=== PATIENT | male | born 1955 | race American Indian/Alaskan Native ===

== ENCOUNTER 2021-04-05 17:14 | Observation (INO) | payer OTHER ==
--- NOTE | 2021-04-05 18:02 | XRay Report ---
CHEST 2 VIEWS INDICATION / CLINICAL INFORMATION: cp. COMPARISON: None available. FINDINGS: SUPPORT DEVICES: None. HEART / MEDIASTINUM: No significant abnormality. LUNGS / PLEURA: Approximately 7-8 cm focal opacity in the medial segment of the middle lobe. Remainde r of the lungs are overall clear. No pneumothorax. ADDITIONAL FINDINGS: No significant additional findings. IMPRESSION: 1. Approximately 7-8 cm focal opacity in the medial segment of the middle lobe. While this could repr esent middle lobe consolidation, mass lesion, such as neoplasm, is not excluded. Consider further luis luation with dedicated CT chest. Signer Name: Krishna Espinal MD Signed: 04/05/2021 5:57 PM Workstation Name: [id number]
--- NOTE | 2021-04-05 18:48 | Event Note ---
ED Screening Note Date of service: 04/05/21 Time: 18:47 ED Screening Note: 65-year-old -Swiss male presents to the emergency chest pain times a couple days shortness of breath x1 month. Patient complains of fatigue cough chills. Past medical history of hypertension and hyperlipidemia. Currently on lisinopril and hydrochlorothiazide 10 mg over 12.5 and Lipitor 30 mg nightly. Patient reports he has had his Covid vaccination. Has a history of a 20-year smoking of cigarettes. Denies any EtOH denies any VICKI. This initial assessment/diagnostic orders/clinical plan/treatment(s) is/are subject to change based on patients health status, clinical progression and re- assessment by fellow clinical providers in the ED. Further treatment and workup at subsequent clinical providers discretion. Patient/guardian urged not to elope from the ED as their condition may be serious if not clinically assessed and managed. Initial orders include:
[2021-04-05 19:16] LABS: Hematocrit 28.1 % (35.5-45.6); Hemoglobin 9.4 gm/dl (11.8-15.2); Mean Corpuscular HGB Conc 33 % (32-34); Mean Corpuscular Volume 86 fl (84-94); Platelet Count 358 K/mm3 (140-440); Red Blood Count 3.28 M/mm3 (3.65-5.03); Red Cell Distribution Width 14.2 % (13.2-15.2)
[2021-04-05 19:26] LABS: Alanine Aminotransferase 30 units/L (7-56); BUN/Creatinine Ratio 13; Blood Urea Nitrogen 9 mg/dL (9-20); Calcium 8.5 mg/dL (8.4-10.2); Hemolysis Index 15
--- NOTE | 2021-04-05 22:58 | Cat Scan Report ---
CT CHEST WITH CONTRAST INDICATION / CLINICAL INFORMATION: Abnormal cxr mass versus infection. TECHNIQUE: Axial CT images were obtained through the chest after 100 cc Omnipaque [address] scans at this location are performed using CT dose reduction for ALARA by means of automated expos ure control. COMPARISON: 04/05/2021 chest radiograph FINDINGS: NECK BASE: No significant abnormality. HEART: Mild aortic valve calcification. THORACIC AORTA: At the origin of the left subclavian artery from the aorta is a linear filling defect concerning for a small dissection. No significant atherosclerotic calcification. No aneurysm. MEDIASTINUM and GEORGE: Right hilar lymphadenopathy measuring up to 1.3 cm in short axis dimension. LUNGS/AIRWAYS: Approximately 7 cm heterogeneous soft tissue mass in the medial segment of the middle lobe with adjacent postobstructive pneumonia. Innumerable subcentimeter pulmonary nodules are present throughout the lungs, as well. There is an additional 2.0 x 1.3 cm nodular soft tissue density in th e left upper lobe. PLEURA: There is broad-based abutment of the pleural margin by the aforementioned mass. No pneumothor ax. UPPER ABDOMEN: Small renal and hepatic hypodensities suggestive of cysts. CHEST WALL: 3.7 cm cystic focus at the posterior/inferior chest wall on the right in the subcutaneous soft tissues adjacent to the posterior paraspinal musculature. Findings are suggestive of an epiderm al inclusion cyst. SKELETAL SYSTEM: No significant abnormality. IMPRESSION: 1. Approximately 7 cm heterogeneous right middle lobe mass with adjacent postobstructive pneumonia co ncerning for primary neoplasm. There is right perihilar adenopathy and innumerable subcentimeter pulm onary nodules concerning for metastatic disease. 2. At the origin of the left subclavian artery, there is a linear filling defect concerning for a sma ll dissection. 3. Additional findings as above. Signer Name: Krishna Espinal MD Signed: 04/05/2021 10:53 PM Workstation Name: [id number]
--- NOTE | 2021-04-05 23:21 | Event Note ---
Date: 04/05/21 Contacted about incidental note of possible left subclavian artery dissection. Reviewed CT. Incidental note of a left subclavian non flow limiting dissection vs streak artifact. Will need CT angiogram of the chest in 48 hrs to reassess region, but favor streak artifact. Needs to be excluded. No treatment required at this time. No aortic dissection. Further recommendations to follow after CT angiogram.
--- NOTE | 2021-04-05 23:40 | Emergency Department Report ---
ED Shortness of Breath HPI - General Chief Complaint: Chest Pain Stated Complaint: YANETH/CHEST/BACK PAIN Time Seen by Provider: 04/05/21 21:38 Source: patient Mode of arrival: Ambulatory Limitations: No Limitations - History of Present Illness Initial Comments: Patient is a 65-year-old -[place]kin[place] male who is presenting with shortness of breath especially with exertion and chest discomfort. Patient has had 20 pound weight loss over the last year. States cough is nonproductive. States he is gets very short of breath over the last month with exertion. Denies any fevers chills body aches sore throat headache or neck stiffness. Patient does have a 65-[id number] history of smoking. Denies nausea vomiting. Severity: moderate Pain Scale: 6 Quality: other (soreness) Improves With: rest Worsens With: exertion Context: occured during exertion Associated Symptoms: cough - Related Data Allergies Allergy/AdvReac Type Severity Reaction Status Date / Time No Known Allergies Allergy Unverified 04/05/21 17:25 ED Review of Systems ROS: Stated complaint: YANETH/CHEST/BACK PAIN Other details as noted in HPI Comment: All other systems reviewed and negative ED Past Medical Hx - Past Medical History Hx CVA: No Hx Heart Attack/AMI: No - Surgical History Past Surgical History?: No ED Physical Exam - General Limitations: No Limitations General appearance: alert, in no apparent distress - Head Head exam: Present: atraumatic, normocephalic - Eye Eye exam: Present: normal appearance, PERRL, EOMI - ENT ENT exam: Present: mucous membranes moist - Neck Neck exam: Present: normal inspection - Respiratory Respiratory exam: Present: normal lung sounds bilaterally. Absent: respiratory distress, wheezes, rales, rhonchi - Cardiovascular Cardiovascular Exam: Present: normal rhythm, tachycardia, normal heart sounds. Absent: systolic murmur, diastolic murmur, rubs, gallop - GI/Abdominal GI/Abdominal exam: Present: soft, normal bowel sounds. Absent: distended, tenderness, guarding, rebound - Rectal Rectal exam: Present: deferred - Extremities Exam Extremities exam: Present: normal inspection - Back Exam Back exam: Present: normal inspection - Neurological Exam Neurological exam: Present: alert, oriented X3 - Psychiatric Psychiatric exam: Present: normal affect, normal mood - Skin Skin exam: Present: warm, dry, intact, normal color. Absent: rash ED Course Vital Signs 04/05/21 17:19 Temperature 98.8 F Pulse Rate 125 H Respiratory 20 Rate Blood Pressure 118/58 [Right] O2 Sat by Pulse 99 Oximetry ED Medical Decision Making - Lab Data Result diagrams: 04/05/21 18:50 04/05/21 18:50 Lab Results 04/05/21 04/05/21 04/05/21 Range/Units 18:50 18:50 18:50 WBC 11.9 H (4.5-11.0) K/mm3 RBC 3.28 L (3.65-5.03) M/mm3 Hgb 9.4 L (11.8-15.2) gm/dl Hct 28.1 L (35.5-45.6) % MCV 86 (84-94) fl MCH 29 (28-32) pg MCHC 33 (32-34) % RDW 14.2 (13.2-15.2) % Plt Count 358 (140-440) K/mm3 Sodium 134 L (137-145) mmol/L Potassium 3.9 (3.6-5.0) mmol/L Chloride 97.9 L (98-107) mmol/L Carbon Dioxide 24 (22-30) mmol/L Anion Gap 16 mmol/L BUN 9 (9-20) mg/dL Creatinine 0.7 L (0.8-1.3) mg/dL Estimated GFR > 60 ml/min BUN/Creatinine Ratio 13 % Glucose 106 H (75-100) mg/dL Calcium 8.5 (8.4-10.2) mg/dL Phosphorus 3.50 (2.5-4.5) mg/dL Magnesium 1.90 (1.7-2.3) mg/dL Total Bilirubin 0.30 (0.1-1.2) mg/dL AST 26 (5-40) units/L ALT 30 (7-56) units/L Alkaline Phosphatase 129 (35-129) units/L Troponin T (0.00-0.029) ng/mL Total Protein 7.7 (6.3-8.2) g/dL Albumin 3.0 L (3.9-5) g/dL Albumin/Globulin Ratio 0.6 % 04/05/21 04/05/21 Range/Units 18:50 21:26 WBC (4.5-11.0) K/mm3 RBC (3.65-5.03) M/mm3 Hgb (11.8-15.2) gm/dl Hct (35.5-45.6) % MCV (84-94) fl MCH (28-32) pg MCHC (32-34) % RDW (13.2-15.2) % Plt Count (140-440) K/mm3 Sodium (137-145) mmol/L Potassium (3.6-5.0) mmol/L Chloride (98-107) mmol/L Carbon Dioxide (22-30) mmol/L Anion Gap mmol/L BUN (9-20) mg/dL Creatinine (0.8-1.3) mg/dL Estimated GFR ml/min BUN/Creatinine Ratio % Glucose (75-100) mg/dL Calcium (8.4-10.2) mg/dL Phosphorus (2.5-4.5) mg/dL Magnesium (1.7-2.3) mg/dL Total Bilirubin (0.1-1.2) mg/dL AST (5-40) units/L ALT (7-56) units/L Alkaline Phosphatase (35-129) units/L Troponin T < 0.010 < 0.010 (0.00-0.029) ng/mL Total Protein (6.3-8.2) g/dL Albumin (3.9-5) g/dL Albumin/Globulin Ratio % - EKG Data -: EKG Interpreted by Ar - EKG Data 04/05/21 23:43 EKG shows a sinus tachycardia 119. [place] is normal intervals are normal. Patient with Q waves in septal leads. No ST segment elevations or depressions. Time interpretation 536 - Radiology Data [facility] [address] [place] [address] XRay Report Signed Patient: ALEJANDRO PAUL MR#: [id number] : 1955 Acct:[id number] Age/Sex: 65 / M ADM Date: 04/05/21 Loc: ED Attending Dr: Ordering Physician: DHRUV CONSTANTINO Date of Service: 04/05/21 Procedure(s): XR chest routine 2V Accession Number(s): [id number] cc: DHRUV CONSTANTINO Fluoro Time In Minutes: CHEST 2 VIEWS INDICATION / CLINICAL INFORMATION: cp. COMPARISON: None available. FINDINGS: SUPPORT DEVICES: None. HEART / MEDIASTINUM: No significant abnormality. LUNGS / PLEURA: Approximately 7-8 cm focal opacity in the medial segment of the middle lobe. Remainder of the lungs are overall clear. No pneumothorax. ADDITIONAL FINDINGS: No significant additional findings. IMPRESSION: 1. Approximately 7-8 cm focal opacity in the medial segment of the middle lobe. While this could represent middle lobe consolidation, mass lesion, such as neoplasm, is not excluded. Consider further evaluation with dedicated CT chest. Signer Name: Kell Espinal MD Signed: 04/05/2021 5:57 PM Workstation Name: [id number] Transcribed By: RH Dictated By: KELL ESPINAL III Electronically Authenticated By: KELL ESPINAL III Signed Date/Time: 04/05/21 1757 [facility] [address] [place] [address] Cat Scan Report Signed Patient: ALEJANDRO PAUL MR#: [id number] : 1955 Acct:[id number] Age/Sex: 65 / M ADM Date: 04/05/21 Loc: ED Attending Dr: Ordering Physician: DHRUV NAVARRO Date of Service: 04/05/21 Procedure(s): CT chest w con Accession Number(s): [id number] cc: DHRUV NAVARRO CT CHEST WITH CONTRAST INDICATION / CLINICAL INFORMATION: Abnormal cxr mass versus infection. TECHNIQUE: Axial CT images were obtained through the chest after 100 cc Omnipaque [address] scans at this location are performed using CT dose reduction for ALARA by means of automated exposure control. COMPARISON: 04/05/2021 chest radiograph FINDINGS: NECK BASE: No significant abnormality. HEART: Mild aortic valve calcification. THORACIC AORTA: At the origin of the left subclavian artery from the aorta is a linear filling defect concerning for a small dissection. No significant atherosclerotic calcification. No aneurysm. MEDIASTINUM and GEORGE: Right hilar lymphadenopathy measuring up to 1.3 cm in short axis dimension. LUNGS/AIRWAYS: Approximately 7 cm heterogeneous soft tissue mass in the medial segment of the middle lobe with adjacent postobstructive pneumonia. Innumerable subcentimeter pulmonary nodules are present throughout the lungs, as well. There is an additional 2.0 x 1.3 cm nodular soft tissue density in the left upper lobe. PLEURA: There is broad-based abutment of the pleural margin by the aforementioned mass. No pneumothorax. UPPER ABDOMEN: Small renal and hepatic hypodensities suggestive of cysts. CHEST WALL: 3.7 cm cystic focus at the posterior/inferior chest wall on the right in the subcutaneous soft tissues adjacent to the posterior paraspinal musculature. Findings are suggestive of an epidermal inclusion cyst. SKELETAL SYSTEM: No significant abnormality. IMPRESSION: 1. Approximately 7 cm heterogeneous right middle lobe mass with adjacent postobstructive pneumonia concerning for primary neoplasm. There is right perihilar adenopathy and innumerable subcentimeter pulmonary nodules concerning for metastatic disease. 2. At the origin of the left subclavian artery, there is a linear filling defect concerning for a small dissection. 3. Additional findings as above. Signer Name: Kell Espinal MD Signed: 04/05/2021 10:53 PM Workstation Name: [id number] - Medical Decision Making Chest x-ray consistent with a right middle lobe mass. CT does show much more detail that the patient also has a postobstructive pneumonitis. Mass with lymph node involvement is present. Has incidental findings of it does appear to the left subclavian has either streak artifact or small dissection. No aortic dissection. Patient will be seen by vascular surgery team. Patient does have a bounding pulse on the left radial. Patient will need CTA during admission. Patient started on antibiotics for the postobstructive pneumonia and will be admitted to the hospitalist service. Critical Care Time: Yes (30) Critical care attestation.: If time is entered above; I have spent that time in minutes in the direct care of this critically ill patient, excluding procedure time. ED Disposition Clinical Impression: Lung mass, Pneumonia, Dissection of left subclavian artery Disposition: OP ADMIT IP TO THIS HOSP Is pt being admited?: Yes Does the pt Need Aspirin: No Condition: Stable Instructions: Bacterial Pneumonia (ED) Time of Disposition: 00:06
[2021-04-06] MEDS ORDERED: ONDANSETRON 4 MG/2 ML INJ IV PRN (00:49)
[2021-04-06] MEDS ORDERED: MAGNESIUM HYDROXIDE (MOM) ORAL LIQD UDC PO PRN (00:49)
[2021-04-06] MEDS ORDERED: MORPHINE 2 MG/1 ML INJ IV PRN (00:49)
[2021-04-06] MEDS ORDERED: ACETAMINOPHEN 325 MG TAB PO PRN (00:49)
[2021-04-06] MEDS ORDERED: SODIUM CHLORIDE 0.9% 1000 ML 1,000 ML IV SCH (01:00)
--- NOTE | 2021-04-06 01:08 | History and Physical Report ---
History of Present Illness Date of examination: 04/06/21 Date of admission: 04/06/21 00:07 Chief complaint: Shortness of Breath History of present illness: 65-year-old -[place] male presenting to emergency room today complaining of shortness of breath. He has also had some cough which is nonproductive. Shortness of breath is worse on exertion he has also had some chest discomfort. He denies any headache or dizziness and denies any diaphoresis. Patient denies any fever or chills, no nausea or vomiting and no abdominal pain. He states he has lost about 20 pounds within the last 1 year. He denies any night sweats. Work-up in the emergency room today, labs reveals a leukocytosis of about 12. Chest x-ray shows a 7 to 8 cm focal opacity in the medial segment of the middle lobe which could be due to consolidation versus mass lesion. CT angiogram of the chest shows 7 cm heterogeneous right middle lobe mass with adjacent postobstructive pneumonia concerning for primary neoplasm. There is also a linear filling defect of the left subclavian artery. Patient is being admitted with pneumonia and a right middle lobe mass. Past History Past Medical History: No medical history Past Surgical History: No surgical history Social history: no significant social history Family history: no significant family history Medications and Allergies Allergies Allergy/AdvReac Type Severity Reaction Status Date / Time No Known Allergies Allergy Verified 04/06/21 01:05 Home Medications Medication Instructions Recorded Confirmed Last Taken Type AtorvaSTATin [Lipitor] 40 mg PO QHS 04/06/21 04/06/21 Unknown History Lisinopril/Hydrochlorothiazide 10 mg PO DAILY 04/06/21 04/06/21 Unknown History Active Meds: Active Medications Acetaminophen (Acetaminophen 325 Mg Tab) 650 mg PO Q4H PRN PRN Reason: Pain MILD(1-3)/Fever >100.5/NATION Enoxaparin Sodium (Enoxaparin 40 Mg/0.4 Ml Inj) 40 mg SUB-Q QDAY@2200 KEITH; Protocol Sodium Chloride (Nacl 0.9% 1000 Ml) 1,000 mls @ 75 mls/hr IV DIRECT KEITH Levofloxacin/Dextrose (Levaquin 750mg/150ml) 750 mg in 150 mls @ 100 mls/hr IV Q24H KEITH; Protocol Sodium Chloride (Nacl 0.9% 1000 Ml) 1,000 mls @ 75 mls/hr IV DIRECT KEITH Magnesium Hydroxide (Magnesium Hydroxide (Mom) Oral Liqd Udc) 30 ml PO Q4H PRN PRN Reason: Constipation Morphine Sulfate (Morphine 2 Mg/1 Ml Inj) 2 mg IV Q4H PRN PRN Reason: Pain, Moderate (4-6) Ondansetron HCl (Ondansetron 4 Mg/2 Ml Inj) 4 mg IV Q8H PRN PRN Reason: Nausea And Vomiting Sodium Chloride (Sodium Chloride 0.9% 10 Ml Flush Syringe) 10 ml IV BID KEITH Sodium Chloride (Sodium Chloride 0.9% 10 Ml Flush Syringe) 10 ml IV PRN PRN PRN Reason: LINE FLUSH Review of Systems Constitutional: no fever, no chills Ears, nose, mouth and throat: no nasal congestion, no sore throat Cardiovascular: no chest pain, no palpitations Respiratory: cough, shortness of breath Gastrointestinal: no nausea, no vomiting, no diarrhea Genitourinary Male: no dysuria, no hematuria, no flank pain Musculoskeletal: no neck pain, no low back pain Integumentary: no rash, no pruritis Neurological: no headaches, no confusion Psychiatric: no anxiety, no depression Endocrine: no polyphagia, no polydipsia, no polyuria, no nocturia Exam - Constitutional Vitals: Temp Pulse Resp BP Pulse Ox 98.8 F 125 H 20 118/58 99 04/05/21 17:19 04/05/21 17:19 04/05/21 17:19 04/05/21 17:19 04/05/21 17:19 General appearance: Present: no acute distress, well-nourished - EENT Eyes: Present: PERRL, EOM intact. Absent: scleral icterus ENT: hearing intact, clear oral mucosa, dentition normal - Neck Neck: Present: supple, normal ROM - Respiratory Respiratory effort: normal Respiratory: bilateral: diminished - Cardiovascular Rhythm: regular Heart Sounds: Present: S1 & S2. Absent: gallop, systolic murmur, diastolic murmur, rub, click - Extremities Extremities: no ischemia, pulses intact, pulses symmetrical, No edema, normal temperature, normal color, Full ROM Peripheral Pulses: within normal limits - Abdominal General gastrointestinal: Present: soft, non-tender, non-distended, normal bowel sounds. Absent: mass - Integumentary Integumentary: Present: clear, warm, dry, normal turgor. Absent: rash - Musculoskeletal Musculoskeletal: strength equal bilaterally - Psychiatric Psychiatric: appropriate mood/affect, intact judgment & insight, memory intact, cooperative - Neurologic Neurologic: CNII-XII intact, no focal deficits, moves all extremities HEART Score - HEART Score Troponin: Troponin T < 0.010 ng/mL (0.00-0.029) 04/05/21 21:26 Results - Labs CBC & Chem 7: 04/05/21 18:50 04/05/21 18:50 Labs: Abnormal lab results 04/05/21 04/05/21 Range/Units 18:50 18:50 WBC 11.9 H (4.5-11.0) K/mm3 RBC 3.28 L (3.65-5.03) M/mm3 Hgb 9.4 L (11.8-15.2) gm/dl Hct 28.1 L (35.5-45.6) % Sodium 134 L (137-145) mmol/L Chloride 97.9 L (98-107) mmol/L Creatinine 0.7 L (0.8-1.3) mg/dL Glucose 106 H (75-100) mg/dL Albumin 3.0 L (3.9-5) g/dL Assessment and Plan - Patient Problems (1) Pneumonia Current Visit: Yes Status: Acute Plan to address problem: Patient started on empiric IV antibiotics. We will await culture results. (2) Lung mass Current Visit: Yes Status: Acute Plan to address problem: We will place consult to pulmonology for further evaluation and possible biopsy. (3) Dissection of left subclavian artery Current Visit: Yes Status: Acute Plan to address problem: Findings on CT angiograms reveals a linear filling defect of the left subclavian artery. Vascular surgery has been notified by the ER physician and will follow up. (4) DVT prophylaxis Current Visit: Yes Status: Acute Plan to address problem: Patient placed on subcutaneous Lovenox. (5) Full code status Current Visit: Yes Status: Acute Plan to address problem: Patient is full code.
--- NOTE | 2021-04-06 10:15 | Event Note ---
Date: 04/06/21 Patient was seen and evaluated this morning, patient does not have any shortness of breath, not on oxygen. Patient's chest pain is getting better. Patient is on IV antibiotics for poor postobstructive pneumonia. Pulmonary is consulted. Discussed with Dr. Fermin. Will order CT-guided biopsy. If CT-guided biopsy is not done he will get bronchoscopy and biopsy .
[2021-04-06] MEDS: NICOTINE 14 MG/24 HR PATCH TD SCH (10:42)
--- NOTE | 2021-04-06 11:54 | Consultation ---
History of Present Illness Consult date: 04/06/21 Requesting physician: SANAZ SULLIVAN Reason for consult: abnormal CXR/CT History of present illness: 65 male admitted with worsening shortness of breath and 20lb unintentional weight loss. CT scan shows large right middle lobe mass/lesion, which is adjacent to the chest wall but has airways that go to it as well. Past History Past Medical History: No medical history Past Surgical History: No surgical history Social history: no significant social history Family history: no significant family history Medications and Allergies Allergies Allergy/AdvReac Type Severity Reaction Status Date / Time No Known Allergies Allergy Verified 04/06/21 01:05 Home Medications Medication Instructions Recorded Confirmed Last Taken Type AtorvaSTATin [Lipitor] 40 mg PO QHS 04/06/21 04/06/21 Unknown History Lisinopril/Hydrochlorothiazide 10 mg PO DAILY 04/06/21 04/06/21 Unknown History Active Meds: Active Medications Acetaminophen (Acetaminophen 325 Mg Tab) 650 mg PO Q4H PRN PRN Reason: Pain MILD(1-3)/Fever >100.5/NATION Enoxaparin Sodium (Enoxaparin 40 Mg/0.4 Ml Inj) 40 mg SUB-Q QDAY@2200 KEITH; Protocol Sodium Chloride (Nacl 0.9% 1000 Ml) 1,000 mls @ 75 mls/hr IV DIRECT KEITH Levofloxacin/Dextrose (Levaquin 750mg/150ml) 750 mg in 150 mls @ 100 mls/hr IV Q24H EKITH; Protocol Magnesium Hydroxide (Magnesium Hydroxide (Mom) Oral Liqd Udc) 30 ml PO Q4H PRN PRN Reason: Constipation Morphine Sulfate (Morphine 2 Mg/1 Ml Inj) 2 mg IV Q4H PRN PRN Reason: Pain, Moderate (4-6) Nicotine (Nicotine 14 Mg/24 Hr Patch) 14 mg TD QDAY KEITH Last Admin: 04/06/21 10:42 Dose: 14 mg Documented by: Ondansetron HCl (Ondansetron 4 Mg/2 Ml Inj) 4 mg IV Q8H PRN PRN Reason: Nausea And Vomiting Sodium Chloride (Sodium Chloride 0.9% 10 Ml Flush Syringe) 10 ml IV BID KEITH Last Admin: 04/06/21 10:43 Dose: 10 ml Documented by: Sodium Chloride (Sodium Chloride 0.9% 10 Ml Flush Syringe) 10 ml IV PRN PRN PRN Reason: LINE FLUSH Physical Examination Vital signs: Vital Signs Temp Pulse Resp BP Pulse Ox 98.8 F 125 H 20 118/58 99 04/05/21 17:19 04/05/21 17:19 04/05/21 17:19 04/05/21 17:19 04/05/21 17:19 Results - Laboratory Findings CBC and BMP: 04/07/21 07:47 04/07/21 07:47 Abnormal lab findings: Abnormal Labs 04/05/21 04/05/21 18:50 18:50 WBC 11.9 H RBC 3.28 L Hgb 9.4 L Hct 28.1 L Sodium 134 L Chloride 97.9 L Creatinine 0.7 L Glucose 106 H Albumin 3.0 L Assessment and Plan 65 y/o male with lung mass. 1. Agree that tissue sample must be obtained. Asked IMS to get order CT guided biopsy as this may be obtained faster than bronch given the weekend and inability to schedule today. If not able to do CT guided biopsy on Thursday, will ask covering doc to organize bronch but may not happen until later in the week. Please obtain ABG (does not have to be on room air if patient is requiring oxygen therapy).
[2021-04-06] MEDS: SODIUM CHLORIDE 0.9% 1000 ML 1,000 ML IV SCH (14:10)
[2021-04-06] MEDS: ENOXAPARIN 40 MG/0.4 ML INJ SUB-Q SCH (21:52)
[2021-04-07] MEDS: SODIUM CHLORIDE 0.9% 1000 ML 1,000 ML IV SCH (05:56)
[2021-04-07 08:56] LABS: Basophils % (Auto) 0.4 % (0.0-1.8); Eosinophils # (Auto) 0.3 K/mm3 (0.0-0.4); Hematocrit 31.6 % (35.5-45.6); Hemoglobin 10.5 gm/dl (11.8-15.2); Lymphocytes # (Auto) 1.3 K/mm3 (1.2-5.4); Lymphocytes % (Auto) 13.6 % (13.4-35.0); Mean Corpuscular HGB Conc 33 % (32-34); Mean Corpuscular Volume 86 fl (84-94); Monocytes # (Auto) 0.9 K/mm3 (0.0-0.8); Monocytes % (Auto) 9.4 % (0.0-7.3); Platelet Count 364 K/mm3 (140-440); Red Blood Count 3.67 M/mm3 (3.65-5.03); Red Cell Distribution Width 14.2 % (13.2-15.2)
--- NOTE | 2021-04-07 08:58 | Progress Note ---
Assessment and Plan Assessment and plan: (1) Pneumonia Current Visit: Yes Status: Acute Plan to address problem: Patient started on empiric IV antibiotics. We will await culture results. (2) Lung mass Current Visit: Yes Status: Acute Plan to address problem: We will place consult to pulmonology for further evaluation and possible biopsy. (3) Dissection of left subclavian artery Current Visit: Yes Status: Acute Plan to address problem: Findings on CT angiograms reveals a linear filling defect of the left subclavian artery. Vascular surgery has been notified by the ER physician and will follow up. (4) DVT prophylaxis Current Visit: Yes Status: Acute Plan to address problem: Patient placed on subcutaneous Lovenox. (5) Full code status Current Visit: Yes Status: Acute Plan to address problem: Patient is full code. 04/07/2021 -Patient was on room air, no complaints today -Patient is on antibiotics for postobstructive pneumonia -Patient has right lung mass and discussed with pulmonary and to order CT-guided biopsy to get it faster on Thursday. If not done pulmonary will arrange for bronch -Patient has dissection of the left subclavian artery; evaluated by pulmonary and recommend CTA after 48hours will be tomorrow. History Interval history: Patient was seen and evaluated this morning Patient does not have any complaints Patient was on room air Hospitalist Physical - Physical exam Narrative exam: Not in cardiopulmonary distress. The patient appeared well nourished and normally developed. Vital signs as documented. Head exam is unremarkable. No scleral icterus . Neck is without jugular venous distension, thyromegaly, or carotid bruits. Lungs are clear to auscultation. Cardiac exam reveals regular rate and Rhythm. Abdominal exam reveals normal bowel sounds, nontender, no organomegaly. Extremities are nonedematous and both femoral and pedal pulses are normal. PLANNING ENGINEER: Alert and oriented 3. No focal weakness. - Constitutional Vitals: Temp Pulse Resp BP Pulse Ox 99.7 F H 101 H 20 120/70 98 04/07/21 05:50 04/07/21 05:50 04/07/21 05:50 04/07/21 05:50 04/07/21 05:50 General appearance: Present: no acute distress, well-nourished HEART Score - HEART Score Troponin: Troponin T < 0.010 ng/mL (0.00-0.029) 04/05/21 21:26 Results - Labs CBC & Chem 7: 04/05/21 18:50 05 18:50 Labs: Laboratory Last Values WBC 11.9 K/mm3 (4.5-11.0) H 04/05/21 18:50 RBC 3.28 M/mm3 (3.65-5.03) L 04/05/21 18:50 Hgb 9.4 gm/dl (11.8-15.2) L 04/05/21 18:50 Hct 28.1 % (35.5-45.6) L 04/05/21 18:50 MCV 86 fl (84-94) 04/05/21 18:50 MCH 29 pg (28-32) 04/05/21 18:50 MCHC 33 % (32-34) 04/05/21 18:50 RDW 14.2 % (13.2-15.2) 04/05/21 18:50 Plt Count 358 K/mm3 (140-440) 04/05/21 18:50 Sodium 134 mmol/L (137-145) L 04/05/21 18:50 Potassium 3.9 mmol/L (3.6-5.0) 04/05/21 18:50 Chloride 97.9 mmol/L (98-107) L 04/05/21 18:50 Carbon Dioxide 24 mmol/L (22-30) 04/05/21 18:50 Anion Gap 16 mmol/L 04/05/21 18:50 BUN 9 mg/dL (9-20) 04/05/21 18:50 Creatinine 0.7 mg/dL (0.8-1.3) L 04/05/21 18:50 Estimated GFR > 60 ml/min 04/05/21 18:50 BUN/Creatinine Ratio 13 % 04/05/21 18:50 Glucose 106 mg/dL (75-100) H 04/05/21 18:50 Calcium 8.5 mg/dL (8.4-10.2) 04/05/21 18:50 Phosphorus 3.50 mg/dL (2.5-4.5) 04/05/21 18:50 Magnesium 1.90 mg/dL (1.7-2.3) 04/05/21 18:50 Total Bilirubin 0.30 mg/dL (0.1-1.2) 04/05/21 18:50 AST 26 units/L (5-40) 04/05/21 18:50 ALT 30 units/L (7-56) 04/05/21 18:50 Alkaline Phosphatase 129 units/L (35-129) 04/05/21 18:50 Troponin T < 0.010 ng/mL (0.00-0.029) 04/05/21 21:26 Total Protein 7.7 g/dL (6.3-8.2) 04/05/21 18:50 Albumin 3.0 g/dL (3.9-5) L 04/05/21 18:50 Albumin/Globulin Ratio 0.6 % 04/05/21 18:50 Microbiology: Microbiology 04/06/21 00:39 Peripheral/Venous Blood Culture - Preliminary NO GROWTH AFTER 24 HOURS 04/06/21 00:01 Peripheral/Venous Blood Culture - Preliminary NO GROWTH AFTER 24 HOURS Godinez/IV: Voiding Method Toilet Active Medications - Current Medications Current Medications: Generic Name Dose Route Start Last Admin Trade Name Freq PRN Reason Stop Dose Admin Acetaminophen 650 mg 04/06/21 00:49 Acetaminophen 325 Mg Tab PO Q4H PRN Pain MILD(1-3)/Fever >100.5/NATION Enoxaparin Sodium 40 mg 04/06/21 22:00 04/06/21 21:52 Enoxaparin 40 Mg/0.4 Ml Inj SUB-Q 40 mg QDAY@2200 KEITH Administration Protocol Sodium Chloride 1,000 mls @ 75 mls/hr 04/06/21 01:00 04/07/21 05:56 Nacl 0.9% 1000 Ml IV 75 mls/hr DIRECT KEITH Administration Levofloxacin/Dextrose 750 mg in 150 mls @ 100 mls/hr 04/06/21 22:00 04/06/21 21:51 Levaquin 750mg/150ml IV 100 mls/hr Q24H KEITH Administration Protocol Magnesium Hydroxide 30 ml 04/06/21 00:49 04/06/21 21:51 Magnesium Hydroxide (Mom) Oral Liqd Udc PO 30 ml Q4H PRN Administration Constipation Morphine Sulfate 2 mg 04/06/21 00:49 Morphine 2 Mg/1 Ml Inj IV Q4H PRN Pain, Moderate (4-6) Nicotine 14 mg 04/06/21 10:00 04/06/21 10:42 Nicotine 14 Mg/24 Hr Patch TD 14 mg QDAY KEITH Administration Ondansetron HCl 4 mg 04/06/21 00:49 Ondansetron 4 Mg/2 Ml Inj IV Q8H PRN Nausea And Vomiting Sodium Chloride 10 ml 04/06/21 10:00 04/06/21 21:54 Sodium Chloride 0.9% 10 Ml Flush Syringe IV 10 ml BID KEITH Administration Sodium Chloride 10 ml 04/06/21 00:49 Sodium Chloride 0.9% 10 Ml Flush Syringe IV PRN PRN LINE FLUSH
[2021-04-07 09:05] LABS: INR 1.12 (0.87-1.13)
[2021-04-07 09:47] LABS: Blood Urea Nitrogen 6 mg/dL (9-20); Calcium 8.6 mg/dL (8.4-10.2); Hemolysis Index 13
[2021-04-07 09:51] LABS: BUN/Creatinine Ratio 9
[2021-04-07 10:07] LABS: ABG Base Excess 0.9 mmol/L (-2.0-3.0); ABG Methemoglobin 0.5 % (0.0-1.5); ABG Oxygen Saturation 96.8 % (95.0-99.0); ABG PCO2 38.5 mm Hg; ABG PH 7.431 pH Units (7.350-7.450); ABG PO2 85.5 mm Hg (80.0-90.0)
[2021-04-07] MEDS: NICOTINE 14 MG/24 HR PATCH TD SCH (10:39)
--- NOTE | 2021-04-07 11:31 | Progress Note ---
Assessment and Plan 65 y/o male with lung mass. 04/07/21: Hopeful CT guided biopsy can be done. If not, then my colleagues will arrange for bronch. If not able to do inpatient, can have patient return as outpatient. 1. Agree that tissue sample must be obtained. Asked IMS to get order CT guided biopsy as this may be obtained faster than bronch given the weekend and inability to schedule today. If not able to do CT guided biopsy on Thursday, will ask covering doc to organize bronch but may not happen until later in the week. Please obtain ABG (does not have to be on room air if patient is requiring oxygen therapy). Subjective Date of service: 04/07/21 Interval history: No acute events. Objective Vital Signs - 12hr 04/07/21 05:50 Temperature 99.7 F H Pulse Rate 101 H Respiratory 20 Rate Blood Pressure 120/70 O2 Sat by Pulse 98 Oximetry CBC and BMP: 04/07/21 07:47 04/07/21 07:47 ABG, PT/INR, D-dimer: ABG ABG pH 7.431 pH Units (7.350-7.450) 04/07/21 Unknown ABG pCO2 38.5 mm Hg 04/07/21 Unknown ABG pO2 85.5 mm Hg (80.0-90.0) 04/07/21 Unknown ABG O2 Saturation 96.8 % (95.0-99.0) 04/07/21 Unknown PT/INR, D-dimer PT 14.2 Sec. (12.2-14.9) 04/07/21 07:47 INR 1.12 (0.87-1.13) 04/07/21 07:47 Abnormal lab findings: Abnormal Labs 04/05/21 04/05/21 04/07/21 18:50 18:50 07:47 WBC 11.9 H RBC 3.28 L Hgb 9.4 L 10.5 L Hct 28.1 L 31.6 L [place] % (Auto) 9.4 H [place] # (Auto) 0.9 H Seg Neutrophils % 73.6 H ABG Hemoglobin Sodium 134 L Chloride 97.9 L BUN Creatinine 0.7 L Glucose 106 H Albumin 3.0 L 04/07/21 04/07/21 07:47 Unknown WBC RBC Hgb Hct [place] % (Auto) [place] # (Auto) Seg Neutrophils % ABG Hemoglobin 13.8 L Sodium 135 L Chloride BUN 6 L Creatinine 0.7 L Glucose Albumin
[2021-04-07] MEDS: ENOXAPARIN 40 MG/0.4 ML INJ SUB-Q SCH (21:22)
[2021-04-07] MEDS ORDERED: diphenhydrAMINE 50 MG/ML VIAL IV ONE (23:50)
[2021-04-08] MEDS: SODIUM CHLORIDE 0.9% 1000 ML 1,000 ML IV SCH ×2 (00:10→18:38)
[2021-04-08 08:15] LABS: BUN/Creatinine Ratio 9; Blood Urea Nitrogen 7 mg/dL (9-20); Calcium 8.6 mg/dL (8.4-10.2); Hemolysis Index 1
[2021-04-08] MEDS: NICOTINE 14 MG/24 HR PATCH TD SCH (09:50)
[2021-04-08] MEDS ORDERED: ONDANSETRON 4 MG/2 ML INJ IV ONE (11:00)
[2021-04-08] MEDS ORDERED: HYDROmorphone 1 MG/1 ML INJ IV ONE (11:00)
--- NOTE | 2021-04-08 11:10 | Electrocardiograph Report ---
[facility] Test Date: 2021-04-05 Test Time: 17:32:08 Pat Name: ALEJANDRO PAUL Department: Room: A385 1 Gender: M Esthetician/Owner: : [id number] Requested By: JUAN ANTONIO OROZCO Order Number: [id number] Reading MD: Jan Cifuentes Measurements Intervals [place] Rate: 119 P: 61 [place]: 144 QRS: 76 QRSD: 76 T: 57 QT: 324 QTc: 456 Interpretive Statements Sinus tachycardia Probable left atrial enlargement Anteroseptal infarct, age indeterminate No previous ECG available for comparison Electronically Signed On 04-08-2021 11:09:50 EDT by Jan Cifuentes
--- NOTE | 2021-04-08 12:37 | Progress Note ---
Assessment and Plan Assessment and plan: 65-year-old -Spanish male presenting to emergency room today complaining of shortness of breath. He has also had some cough which is nonproductive. Shortness of breath is worse on exertion he has also had some chest discomfort. He denies any headache or dizziness and denies any diaphoresis. Patient denies any fever or chills, no nausea or vomiting and no abdominal pain. He states he has lost about 20 pounds within the last 1 year. He denies any night sweats. Work-up in the emergency room today, labs reveals a leukocytosis of about 12. Chest x-ray shows a 7 to 8 cm focal opacity in the medial segment of the middle lobe which could be due to consolidation versus mass lesion. CT angiogram of the chest shows 7 cm heterogeneous right middle lobe mass with adjacent postobstructive pneumonia concerning for primary neoplasm. There is also a linear filling defect of the left subclavian artery. Patient is being admitted with pneumonia and a right middle lobe mass, awaiting Biopsy. (1) Pneumonia Current Visit: Yes Status: Acute Plan to address problem: Patient started on empiric IV antibiotics. We will await culture results. (2) Lung mass Current Visit: Yes Status: Acute Plan to address problem: We will place consult to pulmonology for further evaluation and possible biopsy. (3) Dissection of left subclavian artery Current Visit: Yes Status: Acute Plan to address problem: Findings on CT angiograms reveals a linear filling defect of the left subclavian artery. Vascular surgery has been notified by the ER physician and will follow up. (4) DVT prophylaxis Current Visit: Yes Status: Acute Plan to address problem: Patient placed on subcutaneous Lovenox. (5) Full code status Current Visit: Yes Status: Acute Plan to address problem: Patient is full code. 04/07/2021 -Patient was on room air, no complaints today -Patient is on antibiotics for postobstructive pneumonia -Patient has right lung mass and discussed with pulmonary and to order CT-guided biopsy to get it faster on Thursday. If not done pulmonary will arrange for bronch -Patient has dissection of the left subclavian artery; evaluated by pulmonary and recommend CTA after 48hours will be tomorrow. 04/08: Mild angioedema none improving otherwise we will still give steroids for 3 days and famotidine. Awaiting report of Biopsy of CT chest. History Interval history: Patient seen and examined resting comfortably no new complaints at this time. Overnight nursing staff noted that the patient had mild swelling on his lips. Apparently the patient had taken he is on lisinopril although the patient states that this started after he got a shot of Lovenox. He denies any respiratory distress. He states that the swelling is improving. Hospitalist Physical - Physical exam Narrative exam: VITAL SIGNS: Reviewed. GENERAL: The patient appears normally developed, Vital signs as documented. HEAD: No signs of head trauma. EYES: Pupils are equal. Extraocular motions intact. EARS: Hearing grossly intact. MOUTH: Oropharynx is normal. NECK: No adenopathy, no JVD. CHEST: Chest with diminished breath sounds bilaterally. No wheezes, rales, or rhonchi. CARDIAC: Regular rate and rhythm. S1 and S2, without murmurs, gallops, or rubs. VASCULAR: No Edema. Peripheral pulses normal and equal in all extremities. ABDOMEN: Soft, non tender and non distended. No rebound or guarding, and no masses palpated. Bowel Sounds normal. MUSCULOSKELETAL: Good range of motion of all major joints. Extremities without clubbing, cyanosis or edema. NEUROLOGIC EXAM: Alert and oriented x 3 No focal sensory or strength deficits. Speech normal. Follows commands. PSYCHIATRIC: Mood normal. SKIN: detail exam as documented in skin assessment - Constitutional Vitals: Temp Pulse Resp BP Pulse Ox 99.4 F 101 H 19 126/66 100 04/08/21 06:07 04/08/21 11:14 04/08/21 11:25 04/08/21 11:14 04/08/21 11:14 General appearance: Present: no acute distress, well-nourished HEART Score - HEART Score Troponin: Troponin T < 0.010 ng/mL (0.00-0.029) 04/05/21 21:26 Results - Labs CBC & Chem 7: 04/07/21 07:47 04/08/21 07:17 Labs: Laboratory Last Values WBC 9.6 K/mm3 (4.5-11.0) 04/07/21 07:47 RBC 3.67 M/mm3 (3.65-5.03) 04/07/21 07:47 Hgb 10.5 gm/dl (11.8-15.2) L 04/07/21 07:47 Hct 31.6 % (35.5-45.6) L 04/07/21 07:47 MCV 86 fl (84-94) 04/07/21 07:47 MCH 29 pg (28-32) 04/07/21 07:47 MCHC 33 % (32-34) 04/07/21 07:47 RDW 14.2 % (13.2-15.2) 04/07/21 07:47 Plt Count 364 K/mm3 (140-440) 04/07/21 07:47 Lymph % (Auto) 13.6 % (13.4-35.0) 04/07/21 07:47 [place] % (Auto) 9.4 % (0.0-7.3) H 04/07/21 07:47 Eos % (Auto) 3.0 % (0.0-4.3) 04/07/21 07:47 Baso % (Auto) 0.4 % (0.0-1.8) 04/07/21 07:47 Lymph # (Auto) 1.3 K/mm3 (1.2-5.4) 04/07/21 07:47 [place] # (Auto) 0.9 K/mm3 (0.0-0.8) H 04/07/21 07:47 Eos # (Auto) 0.3 K/mm3 (0.0-0.4) 04/07/21 07:47 Baso # (Auto) 0.0 K/mm3 (0.0-0.1) 04/07/21 07:47 Seg Neutrophils % 73.6 % (40.0-70.0) H 04/07/21 07:47 Seg Neutrophils # 7.0 K/mm3 (1.8-7.7) 04/07/21 07:47 PT 14.2 Sec. (12.2-14.9) 04/07/21 07:47 INR 1.12 (0.87-1.13) 04/07/21 07:47 ABG pH 7.431 pH Units (7.350-7.450) 04/07/21 Unknown ABG pCO2 38.5 mm Hg 04/07/21 Unknown ABG pO2 85.5 mm Hg (80.0-90.0) 04/07/21 Unknown ABG HCO3 25.0 mmol/L (20.0-26.0) 04/07/21 Unknown ABG O2 Saturation 96.8 % (95.0-99.0) 04/07/21 Unknown ABG O2 Content 18.5 (0.0-44) 04/07/21 Unknown ABG Base Excess 0.9 mmol/L (-2.0-3.0) 04/07/21 Unknown ABG Hemoglobin 13.8 gm/dl (14.0-18.0) L 04/07/21 Unknown ABG Carboxyhemoglobin 1.2 % (0.0-5.0) 04/07/21 Unknown ABG Methemoglobin 0.5 % (0.0-1.5) 04/07/21 Unknown Oxyhemoglobin 95.2 % (95.0-99.0) 04/07/21 Unknown FiO2 21 % 04/07/21 Unknown Sodium 136 mmol/L (137-145) L 04/08/21 07:17 Potassium 3.8 mmol/L (3.6-5.0) 04/08/21 07:17 Chloride 101.6 mmol/L (98-107) 04/08/21 07:17 Carbon Dioxide 25 mmol/L (22-30) 04/08/21 07:17 Anion Gap 13 mmol/L 04/08/21 07:17 BUN 7 mg/dL (9-20) L 04/08/21 07:17 Creatinine 0.8 mg/dL (0.8-1.3) 04/08/21 07:17 Estimated GFR > 60 ml/min 04/08/21 07:17 BUN/Creatinine Ratio 9 % 04/08/21 07:17 Glucose 119 mg/dL (75-100) H 04/08/21 07:17 Calcium 8.6 mg/dL (8.4-10.2) 04/08/21 07:17 Phosphorus 3.50 mg/dL (2.5-4.5) 04/05/21 18:50 Magnesium 1.90 mg/dL (1.7-2.3) 04/05/21 18:50 Total Bilirubin 0.30 mg/dL (0.1-1.2) 04/05/21 18:50 AST 26 units/L (5-40) 04/05/21 18:50 ALT 30 units/L (7-56) 04/05/21 18:50 Alkaline Phosphatase 129 units/L (35-129) 04/05/21 18:50 Troponin T < 0.010 ng/mL (0.00-0.029) 04/05/21 21:26 Total Protein 7.7 g/dL (6.3-8.2) 04/05/21 18:50 Albumin 3.0 g/dL (3.9-5) L 04/05/21 18:50 Albumin/Globulin Ratio 0.6 % 04/05/21 18:50 Microbiology: Microbiology 04/06/21 00:39 Peripheral/Venous Blood Culture - Preliminary NO GROWTH AFTER 48 HOURS 04/06/21 00:01 Peripheral/Venous Blood Culture - Preliminary NO GROWTH AFTER 48 HOURS Godinez/IV: Voiding Method Toilet Active Medications - Current Medications Current Medications: Generic Name Dose Route Start Last Admin Trade Name Freq PRN Reason Stop Dose Admin Acetaminophen 650 mg 04/06/21 00:49 Acetaminophen 325 Mg Tab PO Q4H PRN Pain MILD(1-3)/Fever >100.5/NATION Enoxaparin Sodium 40 mg 04/06/21 22:00 04/07/21 21:22 Enoxaparin 40 Mg/0.4 Ml Inj SUB-Q 40 mg QDAY@2200 KEITH Administration Protocol Famotidine 20 mg 04/08/21 11:00 Famotidine 20 Mg/2 Ml Inj IV BID KEITH Sodium Chloride 1,000 mls @ 75 mls/hr 04/06/21 01:00 04/08/21 00:10 Nacl 0.9% 1000 Ml IV 75 mls/hr DIRECT KEITH Administration Levofloxacin/Dextrose 750 mg in 150 mls @ 100 mls/hr 04/06/21 22:00 04/07/21 21:24 Levaquin 750mg/150ml IV 04/10/21 23:29 100 mls/hr Q24H KEITH Administration Protocol Magnesium Hydroxide 30 ml 04/06/21 00:49 04/06/21 21:51 Magnesium Hydroxide (Mom) Oral Liqd Udc PO 30 ml Q4H PRN Administration Constipation Morphine Sulfate 2 mg 04/06/21 00:49 Morphine 2 Mg/1 Ml Inj IV Q4H PRN Pain, Moderate (4-6) Nicotine 14 mg 04/06/21 10:00 04/08/21 09:50 Nicotine 14 Mg/24 Hr Patch TD 14 mg QDAY KEITH Administration Ondansetron HCl 4 mg 04/06/21 00:49 Ondansetron 4 Mg/2 Ml Inj IV Q8H PRN Nausea And Vomiting Prednisone 40 mg 04/08/21 11:00 Prednisone 20 Mg Tab PO 04/10/21 10:01 QDAY KEITH Sodium Chloride 10 ml 04/06/21 10:00 04/08/21 09:50 Sodium Chloride 0.9% 10 Ml Flush Syringe IV 10 ml BID KEITH Administration Sodium Chloride 10 ml 04/06/21 00:49 Sodium Chloride 0.9% 10 Ml Flush Syringe IV PRN PRN LINE FLUSH
--- NOTE | 2021-04-08 12:58 | Cat Scan Report ---
CT-GUIDED RIGHT LUNG BIOPSY INDICATION : right middle lobe mass. COMPARISON: CT chest 04/05/2021. PROCEDURE: The risks (including but not limited to bleeding and infection) and benefits were explain ed to the patient and informed consent was obtained. All CT scans at this location are performed usi ng CT dose reduction for ALARA by means of automated exposure control. A time out procedure was performed. The procedure site was prepped and draped in the usual sterile f ashion and lidocaine was used for local anesthesia. Anxiolysis was accomplished with 1 mg of IV Dilau did and 2 mg of IV Zofran. Using CT guidance, a 19-gauge introducer needle was advanced to the leading edge of an approximate 8 cm right middle lobe mass. 5 separate 2.2 cm 20-gauge core biopsies were obtained. Pathology was pres ent and deemed the samples adequate. Follow-up CT scan demonstrates no evidence for pneumothorax. The patient tolerated the procedure well with no complications. IMPRESSION: Successful CT-guided biopsy of the 8 cm right middle lobe mass. Signer Name: Gumaro Spring Jr, MD Signed: 04/08/2021 12:54 PM Workstation Name: [id number]
[2021-04-08] MEDS: predniSONE 20 MG TAB PO SCH (13:42)
[2021-04-08] MEDS: FAMOTIDINE 20 MG/2 ML INJ IV SCH ×2 (13:42→21:10)
[2021-04-08] MEDS ORDERED: SODIUM CHLORIDE 0.9% 1000 ML 1,000 ML IV ONE (15:49)
[2021-04-08] MEDS ORDERED: dilTIAZem 30 MG TAB PO ONE (15:55)
--- NOTE | 2021-04-08 16:53 | Progress Note ---
Subjective Date of service: 04/08/21 Principal diagnosis: Lung mass Objective Vital Signs - 12hr 04/08/21 04/08/21 04/08/21 06:07 11:14 11:25 Temperature 99.4 F Pulse Rate 120 H Pulse Rate [ Intra-Procedure ] Pulse Rate [ Post-Procedure] Pulse Rate [Pre 101 H -Procedure] Respiratory 20 19 Rate Respiratory Rate [Intra- Procedure] Respiratory Rate [Post- Procedure] Respiratory 25 H Rate [Pre- Procedure] Blood Pressure 106/61 Blood Pressure [Intra- Procedure] Blood Pressure [Post-Procedure ] Blood Pressure 126/66 [Pre-Procedure] O2 Sat by Pulse 99 Oximetry O2 Sat by Pulse Oximetry [ Intra-Procedure ] O2 Sat by Pulse Oximetry [Post -Procedure] O2 Sat by Pulse 100 Oximetry [Pre- Procedure] 04/08/21 04/08/21 04/08/21 11:35 11:38 11:42 Temperature Pulse Rate Pulse Rate [ 108 H 104 H 104 H Intra-Procedure ] Pulse Rate [ Post-Procedure] Pulse Rate [Pre -Procedure] Respiratory Rate Respiratory 23 28 H 13 Rate [Intra- Procedure] Respiratory Rate [Post- Procedure] Respiratory Rate [Pre- Procedure] Blood Pressure Blood Pressure 122/59 119/61 130/67 [Intra- Procedure] Blood Pressure [Post-Procedure ] Blood Pressure [Pre-Procedure] O2 Sat by Pulse Oximetry O2 Sat by Pulse 100 100 100 Oximetry [ Intra-Procedure ] O2 Sat by Pulse Oximetry [Post -Procedure] O2 Sat by Pulse Oximetry [Pre- Procedure] 04/08/21 04/08/21 04/08/21 11:45 11:48 11:51 Temperature Pulse Rate Pulse Rate [ 102 H 116 H 104 H Intra-Procedure ] Pulse Rate [ Post-Procedure] Pulse Rate [Pre -Procedure] Respiratory Rate Respiratory 22 16 15 Rate [Intra- Procedure] Respiratory Rate [Post- Procedure] Respiratory Rate [Pre- Procedure] Blood Pressure Blood Pressure 130/73 136/71 131/75 [Intra- Procedure] Blood Pressure [Post-Procedure ] Blood Pressure [Pre-Procedure] O2 Sat by Pulse Oximetry O2 Sat by Pulse 100 100 100 Oximetry [ Intra-Procedure ] O2 Sat by Pulse Oximetry [Post -Procedure] O2 Sat by Pulse Oximetry [Pre- Procedure] 04/08/21 04/08/21 04/08/21 11:56 12:00 12:30 Temperature Pulse Rate 115 H Pulse Rate [ 104 H Intra-Procedure ] Pulse Rate [ 103 H Post-Procedure] Pulse Rate [Pre -Procedure] Respiratory 18 Rate Respiratory 12 Rate [Intra- Procedure] Respiratory 24 Rate [Post- Procedure] Respiratory Rate [Pre- Procedure] Blood Pressure Blood Pressure 129/52 [Intra- Procedure] Blood Pressure 132/71 [Post-Procedure ] Blood Pressure [Pre-Procedure] O2 Sat by Pulse 98 Oximetry O2 Sat by Pulse 100 Oximetry [ Intra-Procedure ] O2 Sat by Pulse 100 Oximetry [Post -Procedure] O2 Sat by Pulse Oximetry [Pre- Procedure] 04/08/21 04/08/21 12:31 15:56 Temperature 97.8 F Pulse Rate 120 H 127 H Pulse Rate [ Intra-Procedure ] Pulse Rate [ Post-Procedure] Pulse Rate [Pre -Procedure] Respiratory 18 Rate Respiratory Rate [Intra- Procedure] Respiratory Rate [Post- Procedure] Respiratory Rate [Pre- Procedure] Blood Pressure Blood Pressure [Intra- Procedure] Blood Pressure [Post-Procedure ] Blood Pressure [Pre-Procedure] O2 Sat by Pulse 98 Oximetry O2 Sat by Pulse Oximetry [ Intra-Procedure ] O2 Sat by Pulse Oximetry [Post -Procedure] O2 Sat by Pulse Oximetry [Pre- Procedure] CBC and BMP: 04/07/21 07:47 04/08/21 07:17 ABG, PT/INR, D-dimer: ABG ABG pH 7.431 pH Units (7.350-7.450) 04/07/21 Unknown ABG pCO2 38.5 mm Hg 04/07/21 Unknown ABG pO2 85.5 mm Hg (80.0-90.0) 04/07/21 Unknown ABG O2 Saturation 96.8 % (95.0-99.0) 04/07/21 Unknown PT/INR, D-dimer PT 14.2 Sec. (12.2-14.9) 04/07/21 07:47 INR 1.12 (0.87-1.13) 04/07/21 07:47 Abnormal lab findings: Abnormal Labs 04/05/21 04/05/21 04/07/21 18:50 18:50 07:47 WBC 11.9 H RBC 3.28 L Hgb 9.4 L 10.5 L Hct 28.1 L 31.6 L [place] % (Auto) 9.4 H [place] # (Auto) 0.9 H Seg Neutrophils % 73.6 H ABG Hemoglobin Sodium 134 L Chloride 97.9 L BUN Creatinine 0.7 L Glucose 106 H Albumin 3.0 L 04/07/21 04/07/21 04/08/21 07:47 Unknown 07:17 WBC RBC Hgb Hct [place] % (Auto) [place] # (Auto) Seg Neutrophils % ABG Hemoglobin 13.8 L Sodium 135 L 136 L Chloride BUN 6 L 7 L Creatinine 0.7 L Glucose 119 H Albumin
--- NOTE | 2021-04-08 19:38 | XRay Report ---
CHEST 2 VIEWS INDICATION / CLINICAL INFORMATION: Dyspnea. COMPARISON: 04/05/21. FINDINGS: SUPPORT DEVICES: None. HEART / MEDIASTINUM: The heart size and pulmonary vasculature are normal. LUNGS / PLEURA: The large mass in the right middle lobe is stable. The left lung is clear. No pleural effusion. No pneumothorax. ADDITIONAL FINDINGS: No significant additional findings. IMPRESSION: Large right lung mass is stable. No new abnormality since 04/05/21. Signer Name: Krishna Garcia MD Signed: 04/08/2021 7:33 PM Workstation Name: [id number]
[2021-04-08] MEDS: ENOXAPARIN 40 MG/0.4 ML INJ SUB-Q SCH (21:11)
--- NOTE | 2021-04-08 21:57 | Progress Note ---
Assessment and Plan Imp: 1. Lung mass with R hilar LAD and bilateral pulm nodules 2. ? Pneumonia though doubtful 3. Nicotine dependence, cigarettes 4. Weight loss 5. Mild hyponatremia 6. Normocytic anemia, likely 2/2 chronic disease Rec: 1. F/u biopsy results 2. Finish ~ 7 days of empiric ABX; can change to PO for d/c 3. Since he is otherwise stable on RA okay to d/c home pulm-connolly to finish ABX, and to f/u with us in the office next week for biopsy results Plan of care reviewed w/ patient, he understands/agrees Subjective Date of service: 04/08/21 Principal diagnosis: Lung mass Interval history: s/p CT guided biopsy without issues. No chest pain. On RA. Cough is similar. No new complaints. Active Medications Acetaminophen (Acetaminophen 325 Mg Tab) 650 mg PO Q4H PRN PRN Reason: Pain MILD(1-3)/Fever >100.5/NATION Enoxaparin Sodium (Enoxaparin 40 Mg/0.4 Ml Inj) 40 mg SUB-Q QDAY@2200 [facility]; Protocol Last Admin: 04/08/21 21:11 Dose: 40 mg Documented by: Famotidine (Famotidine 20 Mg/2 Ml Inj) 20 mg IV BID [facility] Last Admin: 04/08/21 21:10 Dose: 20 mg Documented by: Sodium Chloride (Nacl 0.9% 1000 Ml) 1,000 mls @ 75 mls/hr IV DIRECT [facility] Last Admin: 04/08/21 18:38 Dose: 75 mls/hr Documented by: Levofloxacin/Dextrose (Levaquin 750mg/150ml) 750 mg in 150 mls @ 100 mls/hr IV Q24H [facility]; Protocol Stop: 04/10/21 23:29 Last Admin: 04/08/21 21:11 Dose: 100 mls/hr Documented by: Magnesium Hydroxide (Magnesium Hydroxide (Mom) Oral Liqd Udc) 30 ml PO Q4H PRN PRN Reason: Constipation Last Admin: 04/06/21 21:51 Dose: 30 ml Documented by: Morphine Sulfate (Morphine 2 Mg/1 Ml Inj) 2 mg IV Q4H PRN PRN Reason: Pain, Moderate (4-6) Nicotine (Nicotine 14 Mg/24 Hr Patch) 14 mg TD QDAY [facility] Last Admin: 04/08/21 09:50 Dose: 14 mg Documented by: Ondansetron HCl (Ondansetron 4 Mg/2 Ml Inj) 4 mg IV Q8H PRN PRN Reason: Nausea And Vomiting Prednisone (Prednisone 20 Mg Tab) 40 mg PO QDAY [facility] Stop: 04/10/21 10:01 Last Admin: 04/08/21 13:42 Dose: 40 mg Documented by: Sodium Chloride (Sodium Chloride 0.9% 10 Ml Flush Syringe) 10 ml IV BID [facility] Last Admin: 04/08/21 21:11 Dose: 10 ml Documented by: Sodium Chloride (Sodium Chloride 0.9% 10 Ml Flush Syringe) 10 ml IV PRN PRN PRN Reason: LINE FLUSH Objective Vital Signs - 12hr 04/08/21 04/08/21 04/08/21 11:14 11:25 11:35 Temperature Pulse Rate Pulse Rate [ 108 H Intra-Procedure ] Pulse Rate [ Post-Procedure] Pulse Rate [Pre 101 H -Procedure] Respiratory 19 Rate Respiratory 23 Rate [Intra- Procedure] Respiratory Rate [Post- Procedure] Respiratory 25 H Rate [Pre- Procedure] Blood Pressure 122/59 [Intra- Procedure] Blood Pressure [Post-Procedure ] Blood Pressure 126/66 [Pre-Procedure] O2 Sat by Pulse Oximetry O2 Sat by Pulse 100 Oximetry [ Intra-Procedure ] O2 Sat by Pulse Oximetry [Post -Procedure] O2 Sat by Pulse 100 Oximetry [Pre- Procedure] 04/08/21 04/08/21 04/08/21 11:38 11:42 11:45 Temperature Pulse Rate Pulse Rate [ 104 H 104 H 102 H Intra-Procedure ] Pulse Rate [ Post-Procedure] Pulse Rate [Pre -Procedure] Respiratory Rate Respiratory 28 H 13 22 Rate [Intra- Procedure] Respiratory Rate [Post- Procedure] Respiratory Rate [Pre- Procedure] Blood Pressure 119/61 130/67 130/73 [Intra- Procedure] Blood Pressure [Post-Procedure ] Blood Pressure [Pre-Procedure] O2 Sat by Pulse Oximetry O2 Sat by Pulse 100 100 100 Oximetry [ Intra-Procedure ] O2 Sat by Pulse Oximetry [Post -Procedure] O2 Sat by Pulse Oximetry [Pre- Procedure] 04/08/21 04/08/21 04/08/21 11:48 11:51 11:56 Temperature Pulse Rate Pulse Rate [ 116 H 104 H 104 H Intra-Procedure ] Pulse Rate [ Post-Procedure] Pulse Rate [Pre -Procedure] Respiratory Rate Respiratory 16 15 12 Rate [Intra- Procedure] Respiratory Rate [Post- Procedure] Respiratory Rate [Pre- Procedure] Blood Pressure 136/71 131/75 129/52 [Intra- Procedure] Blood Pressure [Post-Procedure ] Blood Pressure [Pre-Procedure] O2 Sat by Pulse Oximetry O2 Sat by Pulse 100 100 100 Oximetry [ Intra-Procedure ] O2 Sat by Pulse Oximetry [Post -Procedure] O2 Sat by Pulse Oximetry [Pre- Procedure] 04/08/21 04/08/21 04/08/21 12:00 12:30 12:31 Temperature 97.8 F Pulse Rate 115 H 120 H Pulse Rate [ Intra-Procedure ] Pulse Rate [ 103 H Post-Procedure] Pulse Rate [Pre -Procedure] Respiratory 18 18 Rate Respiratory Rate [Intra- Procedure] Respiratory 24 Rate [Post- Procedure] Respiratory Rate [Pre- Procedure] Blood Pressure [Intra- Procedure] Blood Pressure 132/71 [Post-Procedure ] Blood Pressure [Pre-Procedure] O2 Sat by Pulse 98 98 Oximetry O2 Sat by Pulse Oximetry [ Intra-Procedure ] O2 Sat by Pulse 100 Oximetry [Post -Procedure] O2 Sat by Pulse Oximetry [Pre- Procedure] 04/08/21 15:56 Temperature Pulse Rate 127 H Pulse Rate [ Intra-Procedure ] Pulse Rate [ Post-Procedure] Pulse Rate [Pre -Procedure] Respiratory Rate Respiratory Rate [Intra- Procedure] Respiratory Rate [Post- Procedure] Respiratory Rate [Pre- Procedure] Blood Pressure [Intra- Procedure] Blood Pressure [Post-Procedure ] Blood Pressure [Pre-Procedure] O2 Sat by Pulse Oximetry O2 Sat by Pulse Oximetry [ Intra-Procedure ] O2 Sat by Pulse Oximetry [Post -Procedure] O2 Sat by Pulse Oximetry [Pre- Procedure] Constitutional: no acute distress, alert Eyes: non-icteric ENT: oropharynx moist Neck: supple Effort: normal Ascultation: Bilateral: clear Cardiovascular: other (tachy, RR; no mrg) Gastrointestinal: normoactive bowel sounds, soft, non-tender, non-distended Integumentary: normal Extremities: no cyanosis, no edema, pink and warm Neurologic: normal mental status, non-focal exam, pupils equal and round Psychiatric: mood appropriate, affect normal CBC and BMP: 04/07/21 07:47 04/08/21 07:17 ABG, PT/INR, D-dimer: ABG ABG pH 7.431 pH Units (7.350-7.450) 04/07/21 Unknown ABG pCO2 38.5 mm Hg 04/07/21 Unknown ABG pO2 85.5 mm Hg (80.0-90.0) 04/07/21 Unknown ABG O2 Saturation 96.8 % (95.0-99.0) 04/07/21 Unknown PT/INR, D-dimer PT 14.2 Sec. (12.2-14.9) 04/07/21 07:47 INR 1.12 (0.87-1.13) 04/07/21 07:47 Abnormal lab findings: Abnormal Labs 04/05/21 04/05/21 04/07/21 18:50 18:50 07:47 WBC 11.9 H RBC 3.28 L Hgb 9.4 L 10.5 L Hct 28.1 L 31.6 L Ponce % (Auto) 9.4 H Ponce # (Auto) 0.9 H Seg Neutrophils % 73.6 H ABG Hemoglobin Sodium 134 L Chloride 97.9 L BUN Creatinine 0.7 L Glucose 106 H Albumin 3.0 L 04/07/21 04/07/21 04/08/21 07:47 Unknown 07:17 WBC RBC Hgb Hct Ponce % (Auto) Ponce # (Auto) Seg Neutrophils % ABG Hemoglobin 13.8 L Sodium 135 L 136 L Chloride BUN 6 L 7 L Creatinine 0.7 L Glucose 119 H Albumin Chest x-ray: report reviewed, image reviewed CT scan - chest: report reviewed, image reviewed
--- NOTE | 2021-04-09 09:04 | Progress Note ---
Assessment and Plan - Patient Problems (1) Lung mass Current Visit: Yes Status: Acute (2) Pneumonia Current Visit: Yes Status: Acute Subjective Principal diagnosis: Lung mass Interval history: episode of tachycardia yesterday. Now without complaints Objective Vital Signs - 12hr 04/08/21 04/09/21 22:22 04:47 Temperature 98.5 F 98.4 F Pulse Rate 101 H 85 Respiratory 18 18 Rate Blood Pressure 108/62 111/61 O2 Sat by Pulse 99 97 Oximetry Constitutional: no acute distress, alert Eyes: non-icteric ENT: oropharynx moist Neck: supple Effort: normal Ascultation: Bilateral: clear Cardiovascular: other (tachy, RR; no mrg) Gastrointestinal: normoactive bowel sounds, soft, non-tender, non-distended Integumentary: normal Extremities: no cyanosis, no edema, pink and warm Neurologic: normal mental status, non-focal exam, pupils equal and round Psychiatric: mood appropriate, affect normal CBC and BMP: 04/07/21 07:47 04/08/21 07:17 ABG, PT/INR, D-dimer: ABG ABG pH 7.431 pH Units (7.350-7.450) 04/07/21 Unknown ABG pCO2 38.5 mm Hg 04/07/21 Unknown ABG pO2 85.5 mm Hg (80.0-90.0) 04/07/21 Unknown ABG O2 Saturation 96.8 % (95.0-99.0) 04/07/21 Unknown PT/INR, D-dimer PT 14.2 Sec. (12.2-14.9) 04/07/21 07:47 INR 1.12 (0.87-1.13) 04/07/21 07:47 Abnormal lab findings: Abnormal Labs 04/05/21 04/05/21 04/07/21 18:50 18:50 07:47 WBC 11.9 H RBC 3.28 L Hgb 9.4 L 10.5 L Hct 28.1 L 31.6 L White % (Auto) 9.4 H White # (Auto) 0.9 H Seg Neutrophils % 73.6 H ABG Hemoglobin Sodium 134 L Chloride 97.9 L BUN Creatinine 0.7 L Glucose 106 H Albumin 3.0 L 04/07/21 04/07/21 04/08/21 07:47 Unknown 07:17 WBC RBC Hgb Hct White % (Auto) White # (Auto) Seg Neutrophils % ABG Hemoglobin 13.8 L Sodium 135 L 136 L Chloride BUN 6 L 7 L Creatinine 0.7 L Glucose 119 H Albumin Chest x-ray: report reviewed, image reviewed (no PTX)
[2021-04-09] MEDS: NICOTINE 14 MG/24 HR PATCH TD SCH (09:06)
[2021-04-09] MEDS: FAMOTIDINE 20 MG/2 ML INJ IV SCH (09:07)
[2021-04-09] MEDS: predniSONE 20 MG TAB PO SCH (09:07)
--- NOTE | 2021-04-09 10:56 | Consultation ---
History of Present Illness Consult date: 04/09/21 Consult reason: tachycardia History of present illness: The patient is a 65-year-old man, history of hypertension and tobacco abuse, presented to the hospital 5 days ago with shortness of breath, cough and chills. His chest x-ray revealed a right hilar opacity which on CT appeared consistent with a mass. He has undergone a lung biopsy, and is planned for discharge today with outpatient pulmonary follow-up. Cardiology consult is requested for a persistent sinus tachycardia which has been present since since admission. His heart rate on admission was in the 120s, and currently 105. ECG shows sinus tachycardia, otherwise normal ECG. The patient has no prior thyroid history. He was on lisinopril 10 mg for his hypertension. He has no prior cardiac history. There is no chest pain, no unusual shortness of breath, no palpitations and no edema. Past History Past Medical History: COPD, hypertension Past Surgical History: No surgical history Social history: no significant social history Family history: no significant family history Medications and Allergies Allergies Allergy/AdvReac Type Severity Reaction Status Date / Time No Known Allergies Allergy Verified 04/06/21 01:05 Home Medications Medication Instructions Recorded Confirmed Last Taken Type AtorvaSTATin [Lipitor] 40 mg PO QHS 04/06/21 04/06/21 Unknown History Lisinopril/Hydrochlorothiazide 10 mg PO DAILY 04/06/21 04/06/21 Unknown History Active Meds: Active Medications Acetaminophen (Acetaminophen 325 Mg Tab) 650 mg PO Q4H PRN PRN Reason: Pain MILD(1-3)/Fever >100.5/NATION Enoxaparin Sodium (Enoxaparin 40 Mg/0.4 Ml Inj) 40 mg SUB-Q QDAY@2200 [facility]; Protocol Last Admin: 04/08/21 21:11 Dose: 40 mg Documented by: Famotidine (Famotidine 20 Mg/2 Ml Inj) 20 mg IV BID [facility] Last Admin: 04/09/21 09:07 Dose: 20 mg Documented by: Sodium Chloride (Nacl 0.9% 1000 Ml) 1,000 mls @ 75 mls/hr IV DIRECT [facility] Last Admin: 04/08/21 18:38 Dose: 75 mls/hr Documented by: Levofloxacin/Dextrose (Levaquin 750mg/150ml) 750 mg in 150 mls @ 100 mls/hr IV Q24H [facility]; Protocol Stop: 04/10/21 23:29 Last Admin: 04/08/21 21:11 Dose: 100 mls/hr Documented by: Magnesium Hydroxide (Magnesium Hydroxide (Mom) Oral Liqd Udc) 30 ml PO Q4H PRN PRN Reason: Constipation Last Admin: 04/06/21 21:51 Dose: 30 ml Documented by: Morphine Sulfate (Morphine 2 Mg/1 Ml Inj) 2 mg IV Q4H PRN PRN Reason: Pain, Moderate (4-6) Nicotine (Nicotine 14 Mg/24 Hr Patch) 14 mg TD QDAY [facility] Last Admin: 04/09/21 09:06 Dose: 14 mg Documented by: Ondansetron HCl (Ondansetron 4 Mg/2 Ml Inj) 4 mg IV Q8H PRN PRN Reason: Nausea And Vomiting Prednisone (Prednisone 20 Mg Tab) 40 mg PO QDAY [facility] Stop: 04/10/21 10:01 Last Admin: 04/09/21 09:07 Dose: 40 mg Documented by: Sodium Chloride (Sodium Chloride 0.9% 10 Ml Flush Syringe) 10 ml IV BID [facility] Last Admin: 04/09/21 09:07 Dose: 10 ml Documented by: Sodium Chloride (Sodium Chloride 0.9% 10 Ml Flush Syringe) 10 ml IV PRN PRN PRN Reason: LINE FLUSH Review of Systems Cardiovascular: shortness of breath, no chest pain, no orthopnea, no palpitations, no rapid/irregular heart beat, no edema, no syncope, no lightheadedness Physical Examination Vital Signs Temp Pulse Resp BP Pulse Ox 98.8 F 125 H 20 118/58 99 04/05/21 17:19 04/05/21 17:19 04/05/21 17:19 04/05/21 17:19 04/05/21 17:19 General appearance: no acute distress HEENT: Positive: PERRL Neck: Positive: neck supple Cardiac: Positive: Regular Rhythm Lungs: Positive: Decreased Breath Sounds Neuro: Positive: Grossly Intact Abdomen: Positive: Soft Male genitourinary: Positive: deferred Skin: Positive: Clear Extremities: Absent: edema Results 04/07/21 07:47 04/08/21 07:17 EKG interpretations - Telemetry EKG Rhythm: Sinus Tachycardia Assessment and Plan - Patient Problems (1) Sinus tachycardia Current Visit: Yes Status: Acute Plan to address problem: Patient has physiologic sinus tachycardia in the setting of acute pulmonary in fection and a right lung mass, which appears to be a new diagnosis. He is planned for discharge today, but as outpatient I would recommend that he gets a thyroid profile, as well as an echocardiogram which can be scheduled in our office in 7 days. With regards to his hypertension, I would recommend discontinuation of lisinopril, and instead use amlodipine 5 mg plus metoprolol XL 50 mg for hypert ension management.
--- NOTE | 2021-04-09 10:58 | Consultation ---
History of Present Illness Consult date: 04/09/21 Consult reason: tachycardia History of present illness: This is a 65-year old male admitted 04/05 with shortness of breath. CT scan reports a right lung mass with bilateral pulmonary nodules concerning for metastatic disease. Pulmonary is following and the patient has undergone a right lung biopsy. A cardiology consultation has been requested for tachycardia. On review of telemetry strips, the patient has persistent sinus tachycardia since admission. A 12-lead ECG done yesterday, shows sinus tachycardia, rate 116. Currently he is sinus tachycardia, rate 105. Patient denies palpitations, denies chest pain, and denies dizziness. He reports his breathing is better. He has a history of hypertension and chronic tobacco abuse. No prior cardiac history or workup. Past History Past Medical History: hypertension, hyperlipidemia Past Surgical History: No surgical history Social history: no significant social history, smoking Family history: no significant family history Medications and Allergies Allergies Allergy/AdvReac Type Severity Reaction Status Date / Time No Known Allergies Allergy Verified 04/06/21 01:05 Home Medications Medication Instructions Recorded Confirmed Last Taken Type AtorvaSTATin [Lipitor] 40 mg PO QHS 04/06/21 04/06/21 Unknown History Lisinopril/Hydrochlorothiazide 10 mg PO DAILY 04/06/21 04/06/21 Unknown History Active Meds: Active Medications Acetaminophen (Acetaminophen 325 Mg Tab) 650 mg PO Q4H PRN PRN Reason: Pain MILD(1-3)/Fever >100.5/NATION Enoxaparin Sodium (Enoxaparin 40 Mg/0.4 Ml Inj) 40 mg SUB-Q QDAY@2200 [facility]; Protocol Last Admin: 04/08/21 21:11 Dose: 40 mg Documented by: Famotidine (Famotidine 20 Mg/2 Ml Inj) 20 mg IV BID [facility] Last Admin: 04/09/21 09:07 Dose: 20 mg Documented by: Sodium Chloride (Nacl 0.9% 1000 Ml) 1,000 mls @ 75 mls/hr IV DIRECT [facility] Last Admin: 04/08/21 18:38 Dose: 75 mls/hr Documented by: Levofloxacin/Dextrose (Levaquin 750mg/150ml) 750 mg in 150 mls @ 100 mls/hr IV Q24H [facility]; Protocol Stop: 04/10/21 23:29 Last Admin: 04/08/21 21:11 Dose: 100 mls/hr Documented by: Magnesium Hydroxide (Magnesium Hydroxide (Mom) Oral Liqd Udc) 30 ml PO Q4H PRN PRN Reason: Constipation Last Admin: 04/06/21 21:51 Dose: 30 ml Documented by: Morphine Sulfate (Morphine 2 Mg/1 Ml Inj) 2 mg IV Q4H PRN PRN Reason: Pain, Moderate (4-6) Nicotine (Nicotine 14 Mg/24 Hr Patch) 14 mg TD QDAY [facility] Last Admin: 04/09/21 09:06 Dose: 14 mg Documented by: Ondansetron HCl (Ondansetron 4 Mg/2 Ml Inj) 4 mg IV Q8H PRN PRN Reason: Nausea And Vomiting Prednisone (Prednisone 20 Mg Tab) 40 mg PO QDAY [facility] Stop: 04/10/21 10:01 Last Admin: 04/09/21 09:07 Dose: 40 mg Documented by: Sodium Chloride (Sodium Chloride 0.9% 10 Ml Flush Syringe) 10 ml IV BID [facility] Last Admin: 04/09/21 09:07 Dose: 10 ml Documented by: Sodium Chloride (Sodium Chloride 0.9% 10 Ml Flush Syringe) 10 ml IV PRN PRN PRN Reason: LINE FLUSH Review of Systems Cardiovascular: no chest pain, no palpitations, no rapid/irregular heart beat, no edema, no syncope, no lightheadedness, no shortness of breath Physical Examination Vital Signs Temp Pulse Resp BP Pulse Ox 98.8 F 125 H 20 118/58 99 04/05/21 17:19 04/05/21 17:19 04/05/21 17:19 04/05/21 17:19 04/05/21 17:19 General appearance: no acute distress HEENT: Positive: PERRL Neck: Positive: trachea midline Cardiac: Positive: Tachycardia Lungs: Positive: Decreased Breath Sounds Neuro: Positive: Grossly Intact Extremities: Absent: edema Results 04/07/21 07:47 04/08/21 07:17 Assessment and Plan Psychological sinus tachycardia Shortness of breath CT scan reports a right lung mass with bilateral pulmonary nodules concerning for metastatic disease. s/p right lung biopsy Hypertension Tobacco abuse Recommendations: Will check a TSH and serum magnesium. Will use amlodipine 5 mg and Metoprolol XL 50 mg daily for hypertension management. As an outpatient will get an echocardiogram for LVEF assessment.
--- NOTE | 2021-04-09 11:16 | Cat Scan Report ---
CTA CHEST WITH CONTRAST INDICATION : Reevaluation of subclavian dissection. TECHNIQUE: Axial imaging performed through the chest, with contrast bolus timing set to maximize opa cification of the aorta. Sagittal and coronal reformatted images. 3-plane MIP reformatted images were obtained. All CT scans at this location are performed using CT dose reduction for ALARA by means of automated exposure control. 100 mL of intravenous contrast administered. COMPARISON: CT chest with contrast 04/05/2021 FINDINGS: Bolus: Contrast bolus timing is adequate. Aorta: The aorta and great vessels appear normal caliber and without significant disease. There is m ild artifact due to dense contrast agent in the left subclavian vein, left brachiocephalic vein and S VC. Central pulmonary arteries are grossly clear. Mediastinum: Heart size is within normal limits. No pericardial abnormality. Mildly enlarged right h ilar lymph nodes node measures up to 1.1 cm in short axis. Lungs: Approximate 8 cm masslike lesion in the right middle lobe and numerous tiny pulmonary nodules are unchanged since 04/05/2021 exam. No pleural effusion or pneumothorax is detected. No significant u nderlying parenchymal lung disease. Bones: No suspicious bony lesion is detected. Upper abdomen: Limited images of the upper abdomen demonstrate numerous tiny liver hypodensities whi ch are most consistent with tiny cysts or hemangiomas. IMPRESSION: There is mild to moderate artifact at the level of the aortic arch as described. No subclavian disse ction is suspected. 8 cm right middle lobe mass, right hilar adenopathy and numerous tiny pulmonary nodules consistent wi th a neoplastic process. Signer Name: Gumaro Spring Jr, MD Signed: 04/08/2021 9:51 AM Workstation Name: [id number]
--- NOTE | 2021-04-09 11:34 | Event Note ---
Date: 04/09/21 Patient with CTA chest performed 04/08/2021. No evidence of left subclavian dissection noted on the study. No vascular surgery intervention is required.
[2021-04-09] MEDS ORDERED: amLODIPine 5 MG TAB PO SCH (12:00)
[2021-04-09] MEDS ORDERED: METOPROLOL SUCCINATE XL 50 MG TAB PO SCH (12:00)
--- NOTE | 2021-04-09 12:28 | Discharge Summary ---
Providers - Providers Date of Admission: 04/06/21 00:07 Attending physician: CRYSTAL MARTIN MD 04/06/21 05:40 Consult to Physician [CONS] Routine Comment: Consulting Provider: NGA WISEMAN Physician Instructions: Reason For Exam: Postobstructive pneumonia, lung mass 04/08/21 15:46 Consult to Cardiology [CONS] Urgent Consulting Provider: MALICK AHRRISON Reason For Exam: tachycardia Primary care physician: MAIKEL DAILY MD Hospitalization Reason for admission: shortness of breath Condition: Stable Hospital course: 65-year-old -[place] male presenting to emergency room today complaining of shortness of breath. He has also had some cough which is nonproductive. Shortness of breath is worse on exertion he has also had some chest discomfort. He denies any headache or dizziness and denies any diaphoresis. Patient denies any fever or chills, no nausea or vomiting and no abdominal pain. He states he has lost about 20 pounds within the last 1 year. He denies any night sweats. Work-up in the emergency room today, labs reveals a leukocytosis of about 12. Chest x-ray shows a 7 to 8 cm focal opacity in the medial segment of the middle lobe which could be due to consolidation versus mass lesion. CT angiogram of the chest shows 7 cm heterogeneous right middle lobe mass with adjacent postobstructive pneumonia concerning for primary neoplasm. There is also a linear filling defect of the left subclavian artery. Patient is being admitted with pneumonia and a right middle lobe mass, awaiting Biopsy. 04/07/2021 -Patient was on room air, no complaints today -Patient is on antibiotics for postobstructive pneumonia -Patient has right lung mass and discussed with pulmonary and to order CT-guided biopsy to get it faster on Thursday. If not done pulmonary will arrange for bronch -Patient has dissection of the left subclavian artery; evaluated by pulmonary and recommend CTA after 48hours will be tomorrow. 04/08: Mild angioedema none improving otherwise we will still give steroids for 3 days and famotidine. Awaiting report of Biopsy of CT chest. 04/09: Patient seen and examined resting comfortably discussed with pulmonary recommended follow-up with pulmonology for biopsy result and also with cardiology outpatient for an echocardiogram and further work-up due to the sinus tachycardia noted. CTA was done which did not show any obstructive subclavian artery or dissection so vascular signed off. Extensive discussion on need to quit tobacco use patient verbalized understanding. I offered nicotine patch but he states that he has some at home. He was started on metoprolol and amlodipine for management of his hypertension. Recommended to discontinue the lisinopril due to possible underlining angioedema as he sustained mild lip swelling in the hospital. = Discharge diagnosis 1. Lung mass with R hilar LAD and bilateral pulm nodules 2. ? Pneumonia though doubtful 3. Nicotine dependence, cigarettes 4. Weight loss 5. Mild hyponatremia 6. Normocytic anemia, likely 2/2 chronic disease 7. Hypertension 8. Sinus tachycardia 9. Mild angioedema Disposition: DC-01 TO HOME OR SELFCARE Final Discharge Diagnosis (Prints w/discharge instructions): Lung mass with R hilar LAD and bilateral pulm nodules Time spent for discharge: 35 mins Core Measure Documentation - Palliative Care Palliative Care/ Comfort Measures: Not Applicable - Core Measures Any of the following diagnoses?: none Exam - Physical Exam Narrative exam: VITAL SIGNS: Reviewed. GENERAL: The patient appears normally developed, Vital signs as documented. HEAD: No signs of head trauma. EYES: Pupils are equal. Extraocular motions intact. EARS: Hearing grossly intact. MOUTH: Oropharynx is normal. NECK: No adenopathy, no JVD. CHEST: Chest with diminished breath sounds bilaterally. No wheezes, rales, or rhonchi. CARDIAC: Regular rate and rhythm. S1 and S2, without murmurs, gallops, or rubs. VASCULAR: No Edema. Peripheral pulses normal and equal in all extremities. ABDOMEN: Soft, non tender and non distended. No rebound or guarding, and no masses palpated. Bowel Sounds normal. MUSCULOSKELETAL: Good range of motion of all major joints. Extremities without clubbing, cyanosis or edema. NEUROLOGIC EXAM: Alert and oriented x 3 No focal sensory or strength deficits. Speech normal. Follows commands. PSYCHIATRIC: Mood normal. SKIN: detail exam as documented in skin assessment - Constitutional Vitals: Temp Pulse Resp BP Pulse Ox 98.4 F 85 18 111/61 97 04/09/21 04:47 04/09/21 04:47 04/09/21 04:47 04/09/21 04:47 04/09/21 04:47 Plan Activity: advance as tolerated, fall precautions Diet: low fat Special Instructions: smoking cessation Follow up with: MAIKEL DAILY MD [Primary Care Provider] - 7 Days YESSENIA CLINE MD [Staff Physician] - 7 Days Prescriptions: amLODIPine 5 mg PO QDAY #30 tablet Nicotine [Habitrol] 14 mg TD QDAY #30 patch cephALEXin [Keflex] 500 mg PO Q12HR #6 cap Metoprolol Xl [Metoprolol SUCCINATE ER TAB] 50 mg PO QDAY #30 tablet Prednisone [predniSONE 10 mg (6-Day Pack, 21 Tabs)] 10 mg PO .TAPER #1 tab.ds.pk
[2021-04-09 13:06] VITALS: BP 124/77
--- NOTE | 2021-04-11 11:37 | Electrocardiograph Report ---
[facility] Test Date: 2021-04-08 Test Time: 13:06:54 Pat Name: ALEJANDRO PAUL Department: Room: A385 1 Gender: M Development Disability Specialist: RUSSELL : [id number] Requested By: CRYSTAL MARTIN Order Number: [id number] Reading MD: Clemencia Cruz Measurements Intervals [place] Rate: 116 P: 73 [place]: 141 QRS: 72 QRSD: 72 T: 58 QT: 314 QTc: 435 Interpretive Statements Sinus tachycardia Probable anteroseptal infarct, old Compared to ECG 04/05/2021 17:32:08 No significant changes Electronically Signed On 04-11-2021 11:36:45 EDT by Clemencia Cruz
== END 2021-04-09 14:10 | disposition home or self-care (01) ==
LOC: ED 17:14 → INTOOBSV 04-06 00:07 → 3A 04-06 00:07
PROVIDERS: ADMIT Internal Medicine Geriatric Medicine; ATTEND Internal Medicine
DX: J18.9 Pneumonia, unspecified organism (principal); I77.79 Dissection of other specified artery; R91.8 Other nonspecific abnormal finding of lung field; F17.210 Nicotine dependence, cigarettes, uncomplicated; T78.3XXA Angioneurotic edema, initial encounter; R63.4 Abnormal weight loss; E87.1 Hypo-osmolality and hyponatremia; D64.9 Anemia, unspecified; R00.0 Tachycardia, unspecified; Z68.26 Body mass index [BMI] 26.0-26.9, adult
CPT/HCPCS: 32408; 36415; 36600; 71046; 71260; 71275; 80048; 80053; 82803; 83735; 84100; 84484; 85025; 85027; 85610; 87040; 88112; 88305; 93005; 96361; 96365; 96366; 96367; 96372; 96375; 96376; 99291; 99406; G0378; J1170; J1200; J1650; J1956; J2405; J7030; J7512; Q9967; 88172; 88173; 88341; 88342